=== PATIENT | male | born 1975 | race Caucasian/White ===

== ENCOUNTER 2016-09-15 17:41 | Emergency (ER) | payer SELFPAY ==
[~2016-09-15] VITALS: Ht 175.3 cm; Wt 63.0 kg
[2016-09-15 18:23] VITALS: BP 110/67; PULSE 94; RESP 20; TEMP 98.3; O2SAT 99
--- NOTE | 2016-09-15 18:48 | PD ---
HPI . 40 YOWM presents to the ed with c/o feelings of hopelessness & suicidal ideation after having financial troubles over the last week. He reports his symptoms worsened today after drinking a pint of vodka & smoking cocaine. He reports he has a plan to cut his wrist or shot himself with a gun. He reports past medical Hx of depression, Hep C & alcohol abuse. Patient reports seizures in the past with ETOH withdrawal. He reports is last drink was 5 hours ago. He is requesting help with his ETOH abuse & psychiatric problems. He denies any CP , SOB, N/V, or abdominal pain. Chief Complaint: Suicide Ideation/Attempt Time Seen by Provider: 18:45 Travel History International Travel<30 days: No Contact w/Intl Traveler<30days: No Traveled to known affect area: No History of Present Illness HPI 40 YOWM presents to the ed with c/o feelings of hopelessness & suicidal ideation after having financial troubles over the last week. He reports his symptoms worsened today after drinking a pint of vodka & smoking cocaine. He reports he has a plan to cut his wrist or shot himself with a gun. He reports past medical Hx of depression, Hep C & alcohol abuse. Patient reports seizures in the past with ETOH withdrawal. He reports is last drink was 5 hours ago. He is requesting help with his ETOH abuse & psychiatric problems. He denies any CP , SOB, N/V, or abdominal pain. PFSH Past Medical History Asthma: Yes Blood Disorders: No Anxiety: Yes Depression: Yes Heart Rhythm Problems: No Cancer: No Cardiovascular Problems: No High Cholesterol: No Chemotherapy: No Chest Pain: No Congestive Heart Failure: No COPD: No Cerebrovascular Accident: No Diabetes: No Diminished Hearing: No Endocrine: No Gastrointestinal Disorders: No Genitourinary: No Hepatitis: Yes (C) Hypertension: No Immune Disorder: No Implanted Vascular Access Dvce: Yes Musculoskeletal: No Neurologic: No Psychiatric: Yes Reproductive: No Respiratory: Yes Immunizations Current: Yes Myocardial Infarction: No Radiation Therapy: No Renal Failure: No Seizures: No Sleep Apnea: No Thyroid Disease: No Ulcer: No Past Surgical History Abdominal Surgery: Yes (HERNIA REPAIR) Body Medical Devices: L FOOT, SCREWS, PLATE, RALF Cardiac Surgery: No Ear Surgery: No Endocrine Surgery: No Eye Surgery: No Genitourinary Surgery: No Neurologic Surgery: No Oral Surgery: No Pacemaker: No Thoracic Surgery: No Tonsillectomy: Yes Other Surgery: Yes (undecented testicle,tonsillectomy,2 hernia. 20 screws on left foot. plate) Social History Alcohol Use: Yes (drinks 1 Liter Vodka daily) Tobacco Use: Yes Substance Use: Yes (Cocaine, pot) Allergies-Medications (Allergen,Severity, Reaction): Coded Allergies: Sulfa (Verified Allergy, Severe, Rash, 09/15/16) Per pt. Uncoded Allergies: Dust Mites (Allergy, Unknown, 07/06/15) Per pt. Reported Meds & Prescriptions Reported Meds & Active Scripts Active No Active Prescriptions or Reported Medications Review of Systems Except as stated in HPI: all other systems reviewed are Neg Psychiatric: Positive: Depression, Suicidal Ideations Physical Exam Narrative GENERAL: Alert & oriented , no acute distress, non-tremulous SKIN: Warm and dry. HEAD: Normocephalic. EYES: No scleral icterus. No injection or drainage. NECK: Supple, trachea midline. No JVD or lymphadenopathy. CARDIOVASCULAR: Regular rate and rhythm without murmurs, gallops, or rubs. RESPIRATORY: Breath sounds equal bilaterally. No accessory muscle use. GASTROINTESTINAL: Abdomen soft, non-tender, nondistended. MUSCULOSKELETAL: No cyanosis, or edema. BACK: Nontender without obvious deformity. No CVA tenderness. Psych: Cooperative, reporting suicidal ideation & depression Data Data Last Documented VS Vital Signs Date Time Temp Pulse Resp B/P Pulse Ox O2 Delivery O2 Flow Rate FiO2 09/16/16 02:57 107 18 113/79 96 09/15/16 22:35 98.1 Room Air Orders Complete Blood Count With Diff (09/15/16 18:08) Comprehensive Metabolic Panel (09/15/16 18:08) Psych Screen (09/15/16 18:08) Drug Screen, Random Urine (09/15/16 18:08) Alcohol (Ethanol) (09/15/16 18:38) Salicylates (Aspirin) (09/15/16 18:38) Tylenol (Acetaminophen) (09/15/16 18:38) Alcohol Withdrawal Asmt-Ciwa ONCE (09/15/16 18:53) Flumazenil Inj (Romazicon Inj) (09/15/16 19:00) Lorazepam (Ativan) (09/15/16 19:00) Lorazepam Inj (Ativan Inj) (09/15/16 19:00) Lorazepam (Ativan) (09/15/16 19:00) Lorazepam Inj (Ativan Inj) (09/15/16 19:00) Lorazepam Inj (Ativan Inj) (09/15/16 19:00) Lorazepam Inj (Ativan Inj) (09/15/16 19:00) Labs Laboratory Tests Test 09/15/16 09/15/16 18:10 19:15 White Blood Count 7.4 TH/MM3 Red Blood Count 5.16 MIL/MM3 Hemoglobin 16.1 GM/DL Hematocrit 47.8 % Mean Corpuscular Volume 92.7 FL Mean Corpuscular Hemoglobin 31.2 PG Mean Corpuscular Hemoglobin 33.7 % Concent Red Cell Distribution Width 13.5 % Platelet Count 230 TH/MM3 Mean Platelet Volume 8.4 FL Neutrophils (%) (Auto) 82.7 % Lymphocytes (%) (Auto) 10.5 % Monocytes (%) (Auto) 5.9 % Eosinophils (%) (Auto) 0.2 % Basophils (%) (Auto) 0.7 % Neutrophils # (Auto) 6.1 TH/MM3 Lymphocytes # (Auto) 0.8 TH/MM3 Monocytes # (Auto) 0.4 TH/MM3 Eosinophils # (Auto) 0.0 TH/MM3 Basophils # (Auto) 0.0 TH/MM3 CBC Comment DIFF FINAL Differential Comment Sodium Level 140 MEQ/L Potassium Level 3.8 MEQ/L Chloride Level 104 MEQ/L Carbon Dioxide Level 24.4 MEQ/L Anion Gap 12 MEQ/L Blood Urea Nitrogen 7 MG/DL Creatinine 0.97 MG/DL Estimat Glomerular Filtration 86 ML/MIN Rate Random Glucose 88 MG/DL Calcium Level 9.3 MG/DL Total Bilirubin 0.4 MG/DL Aspartate Amino Transf 86 U/L (AST/SGOT) Alanine Aminotransferase 101 U/L (ALT/SGPT) Alkaline Phosphatase 123 U/L Total Protein 9.5 GM/DL Albumin 4.5 GM/DL Urine Opiates Screen NEG Urine Barbiturates Screen NEG Urine Amphetamines Screen NEG Urine Benzodiazepines Screen NEG Urine Cocaine Screen POS Urine Cannabinoids Screen POS Salicylates Level 4.6 MG/DL Acetaminophen Level LESS THAN 2.0 MCG/ML Ethyl Alcohol Level 177 MG/DL MDM Medical Decision Making Medical Screen Exam Complete: Yes Emergency Medical Condition: Yes Medical Record Reviewed: Yes Differential Diagnosis suicidal ideation vs. depression vs polysubstance abuse Narrative Course 40 YOM presents with suicidal ideation & requesting ETOH detox. Patients last drink was 5 hours prior. He reports seizures in past with previous ETOH withdrawal. CIWAL protocol initiated, patient will be anglin acted & once medically cleared he will receive psych evaluation. Patients labs reviewed only pertinent findings were mild elevation of liver enzymes, not of true concern given the Hx of Hep C. ETOH level 177, UDS + cocaine & THC. Patient remains stable. He is medically cleared & awaiting psych evaluation. Diagnosis Primary Impression: Suicidal ideation Additional Impressions: Abuse, drug or alcohol Depression Qualified Code: F32.9 - Depression, unspecified depression type Scripts No Active Prescriptions or Reported Meds Danay Araujo September 15, 2016 18:48
[2016-09-15 18:59] LABS: AUTOMATED NEUTROPHIL # 6.1 TH/MM3 (1.8-7.7); BASOPHIL % 0.7 % (0.0-2.0); EOSINOPHIL % 0.2 % (0.0-4.0); HEMATOCRIT 47.8 % (39.0-51.0); HEMO FLAGS DIFF FINAL; LYMPH % 10.5 % (9.0-44.0); LYMPHOCYTE # 0.8 TH/MM3 (1.0-4.8); MEAN CELL VOLUME 92.7 FL (80.0-100.0); MEAN CORPUSCULAR HEMOGLOBIN 31.2 PG (27.0-34.0); MEAN CORPUSCULAR HGB CONC 33.7 % (32.0-36.0); MONO % 5.9 % (0.0-8.0); NEUT % 82.7 % (16.0-70.0); PLATELET COUNT 230 TH/MM3 (150-450); RED BLOOD COUNT 5.16 MIL/MM3 (4.50-5.90); RED CELL DISTRIBUTION WIDTH 13.5 % (11.6-17.2); WHITE BLOOD COUNT 7.4 TH/MM3 (4.0-11.0)
[2016-09-15] MEDS ORDERED: LORazepam 1 MG TAB PO PRN (19:00)
[2016-09-15] MEDS ORDERED: LORazepam 2 MG TAB PO PRN (19:00)
[2016-09-15] MEDS ORDERED: FLUMAZENIL 0.5 MG/5 ML VIAL IV PUSH PRN (19:00)
[2016-09-15] MEDS ORDERED: LORazepam 2 MG/ML VIAL IV PUSH PRN ×4 (19:00)
[2016-09-15 19:14] LABS: AMPHETAMINE, URINE NEG (NEG); BARBITURATES, URINE NEG (NEG); COCAINE, URINE POS (NEG)
[2016-09-15 19:27] LABS: ANION GAP 12 MEQ/L (5-15); AST (GOT) 86 U/L (15-37); BICARBONATE 24.4 MEQ/L (21.0-32.0); BLOOD UREA NITROGEN 7 MG/DL (7-18); CHLORIDE 104 MEQ/L (98-107); GLOMERULAR FILTRATION RATE 86 ML/MIN (>89); POTASSIUM 3.8 MEQ/L (3.5-5.1); SODIUM (NA) 140 MEQ/L (136-145)
[2016-09-15 19:30] LABS: ALKALINE PHOSPHATASE 123 U/L (45-117); ALT (GPT) 101 U/L (12-78); TOTAL BILIRUBIN ADULT 0.4 MG/DL (0.2-1.0)
[2016-09-15 20:25] LABS: ACETAMINOPHEN LESS THAN 2.0 MCG/ML (10.0-30.0)
[2016-09-15 22:35] VITALS: BP 94/60; PULSE 83; RESP 16; TEMP 98.1; O2SAT 95
[2016-09-16 02:57] VITALS: BP 113/79; PULSE 107; RESP 18; O2SAT 96
== END 2016-09-16 05:00 ==
LOC: NEPD 17:41 → NEPJ 09-16 05:00
DX: R45.851 Suicidal ideations (principal); F41.8 Other specified anxiety disorders; B19.20 Unspecified viral hepatitis C without hepatic coma; F12.90 Cannabis use, unspecified, uncomplicated; F14.90 Cocaine use, unspecified, uncomplicated
CPT/HCPCS: 80053; 80307; 85025; 96374; 99284; J2060

== ENCOUNTER 2016-10-01 22:25 | Emergency (ER) | payer SELFPAY ==
[~2016-10-01] VITALS: Ht 177.8 cm; Wt 61.0 kg
[2016-10-01 22:29] VITALS: BP 109/73; PULSE 100; RESP 16; TEMP 98.7; O2SAT 95
[2016-10-01] MEDS ORDERED: LIDOCAINE HCL 1% 20 ML VIAL INFIL ONE (22:45)
[2016-10-01] MEDS ORDERED: SODIUM CHLORIDE 0.9% FLUSH 10 ML FLUSH IV FLUSH PRN (22:45)
[2016-10-01] MEDS ORDERED: TETANUS/DIPHTHERIA TOXOID ADULT 0.5 ML VIAL IM ONE (22:45)
[2016-10-01] MEDS ORDERED: LIDOCAINE 1%/EPINEPHrine 1:100,000 SOLN 20 ML VIAL INFIL ONE (22:45)
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
--- NOTE | 2016-10-01 23:46 | PD ---
Physical Exam Date Seen by Provider: October 01, 2016 Time Seen by Provider: 23:45 Narrative For full history and physical examination please see previous provider's note. I was asked to repair laceration to forehead. Data Data Last Documented VS Vital Signs Date Time Temp Pulse Resp B/P Pulse Ox O2 Delivery O2 Flow Rate FiO2 10/01/16 22:29 98.7 100 16 109/[address] Brain W/O Iv Contrast(Rout) (10/01/16 22:37) Ct Cerv Spine W/O Contrast (10/01/16 22:37) Ct Facial Bones W/O Iv Cont (10/01/16 22:37) Complete Blood Count With Diff (10/01/16 22:37) Comprehensive Metabolic Panel (10/01/16 22:37) Prothrombin Time / Inr (Pt) (10/01/16 22:37) Act Partial Throm Time (Ptt) (10/01/16 22:37) Urinalysis - C+S If Indicated (10/01/16 22:37) Iv Access Insert/Monitor (10/01/16 22:37) Ecg Monitoring (10/01/16 22:37) Oximetry (10/01/16 22:37) Sodium Chloride 0.9% Flush (Ns Flush) (10/01/16 22:45) Alcohol (Ethanol) (10/01/16 22:37) Drug Screen, Random Urine (10/01/16 22:37) Tetanus/Diphtheria Tox Adult (Tetanus/Di (10/01/16 22:45) Lidocai-Epi 1%-1:100,000 Inj (Xylocaine- (10/01/16 22:45) Lidocaine 1% Inj (Xylocaine 1% Inj) (10/01/16 22:45) [facility] Medical Record Reviewed: Yes Supervised Visit with CAMMIE: Yes Interpretation(s) Last Impressions Maxillofacial CT 10/01/162236 Signed Impressions: Service Date/Time: Saturday, October 01, 2016 22:53 - CONCLUSION: No evidence of facial fracture Michael Bahena MD Head CT 10/01/162236 Signed Impressions: Service Date/Time: Saturday, October 01, 2016 22:53 - CONCLUSION: Normal examination. Michael Bahena MD Vital Signs Date Time Temp Pulse Resp B/P Pulse Ox O2 Delivery O2 Flow Rate FiO2 10/01/16 22:29 98.7 100 16 109/73 95 Procedures Procedure Narrative LACERATION LOCATION: Left forehead LENGTH: 2 cm NUMBER OF STITCHES/CHEN: 8 stitches REPAIR: The area of the laceration was prepped with Betadine and sterilely draped. The laceration was infiltrated with 1% lidocaine with epi. The wound was copiously irrigated and explored without evidence of foreign body, tendon injury or neurovascular injury. The wound was closed using 4-0 Prolene. This was a 1 layer repair. A sterile dressing was applied. The patient was advised to keep the dressing clean and dry. Patient tolerated the procedure well. Scripts No Active Prescriptions or Reported Meds Condition: Ev Moses October 01, 2016 23:46
[2016-10-02 00:12] VITALS: BP 110/70; PULSE 104; RESP 21; O2SAT 98
[2016-10-02 00:22] LABS: AUTOMATED NEUTROPHIL # 4.1 TH/MM3 (1.8-7.7); BASOPHIL # 0.1 TH/MM3 (0-0.2); EOSINOPHIL % 0.6 % (0.0-4.0); HEMATOCRIT 37.3 % (39.0-51.0); HEMO FLAGS DIFF FINAL; LYMPH % 23.1 % (9.0-44.0); LYMPHOCYTE # 1.4 TH/MM3 (1.0-4.8); MEAN CELL VOLUME 92.9 FL (80.0-100.0); MEAN CORPUSCULAR HEMOGLOBIN 31.5 PG (27.0-34.0); MEAN CORPUSCULAR HGB CONC 33.9 % (32.0-36.0); NEUT % 67.3 % (16.0-70.0); PLATELET COUNT 130 TH/MM3 (150-450); RED BLOOD COUNT 4.01 MIL/MM3 (4.50-5.90); RED CELL DISTRIBUTION WIDTH 12.8 % (11.6-17.2)
[2016-10-02 00:23] LABS: APTT (PATIENT) 31.3 SEC (24.3-30.1); PROTHROMBIN TIME - PATIENT 10.7 SEC (9.8-11.6)
[2016-10-02 00:32] LABS: BLOOD, URINE MOD (NEG); COMMENT (UR) CULT NOT INDICATED; CULTURE IF INDICATED CULT NOT INDICATED; GLUCOSE,URINE NEG (NEG); KETONE, URINE TRACE mg/dL (NEG); MUCUS URINE MOD /lpf (OCC); NITRITE,URINE NEG (NEG); PH, URINE 5.5 (5.0-8.5); URINE COLOR YELLOW (YELLW/STRAW)
[2016-10-02 00:36] LABS: AMPHETAMINE, URINE NEG (NEG); BARBITURATES, URINE NEG (NEG); COCAINE, URINE POS (NEG)
[2016-10-02 00:43] LABS: ALT (GPT) 113 U/L (12-78); ANION GAP 13 MEQ/L (5-15); AST (GOT) 132 U/L (15-37); BICARBONATE 27.3 MEQ/L (21.0-32.0); BLOOD UREA NITROGEN 14 MG/DL (7-18); CHLORIDE 106 MEQ/L (98-107); GLOMERULAR FILTRATION RATE 112 ML/MIN (>89); POTASSIUM 3.4 MEQ/L (3.5-5.1); SODIUM (NA) 146 MEQ/L (136-145)
[2016-10-02 00:48] LABS: ALKALINE PHOSPHATASE 83 U/L (45-117); TOTAL BILIRUBIN ADULT 0.3 MG/DL (0.2-1.0)
[2016-10-02] MEDS ORDERED: KETOROLAC TROMETHAMINE 30 MG/ML (IVP) VIAL IV PUSH ONE (01:15)
[2016-10-02] MEDS ORDERED: MORPHINE SULFATE 4 MG/ML INJ IV PUSH ONE (01:15)
[2016-10-02] MEDS ORDERED: ONDANSETRON HCL 4 MG/2 ML VIAL IV PUSH ONE (01:15)
[2016-10-02 01:20] VITALS: BP 102/79; PULSE 81; RESP 15; O2SAT 99
[2016-10-02 05:36] VITALS: BP 118/78
== END 2016-10-02 05:43 | disposition home or self-care (01) ==
LOC: NEPC 22:25 → NEPD 10-02 05:43
DX: S01.01XA Laceration without foreign body of scalp, initial encounter (principal); F10.10 Alcohol abuse, uncomplicated; R79.89 Other specified abnormal findings of blood chemistry; F17.200 Nicotine dependence, unspecified, uncomplicated; Z23 Encounter for immunization; Z87.09 Personal history of other diseases of the respiratory system; Z86.59 Personal history of other mental and behavioral disorders; Z86.19 Personal history of other infectious and parasitic diseases; Y00.XXXA Assault by blunt object, initial encounter
CPT/HCPCS: 12011; 70450; 70486; 72125; 80053; 80307; 81001; 85025; 85610; 85730; 90471; 90714; 96374; 96375; 99285; J1885; J2270; J2405

== ENCOUNTER 2016-10-03 03:35 | Emergency (ER) | payer SELFPAY ==
[~2016-10-03] VITALS: Ht 177.8 cm; Wt 65.0 kg
[2016-10-03 03:38] VITALS: BP 115/70; PULSE 64; RESP 18; TEMP 98.1; O2SAT 99
[2016-10-03 04:00] VITALS: O2SAT 100
[2016-10-03] MEDS ORDERED: THIAMINE INJ 100 MG in SODIUM CHLORIDE 0.9% INJ 100 ML IV ONE (04:00)
[2016-10-03] MEDS ORDERED: SODIUM CHLOR 0.9% 1000 ML INJ 1,000 ML IV ONE (04:00)
[2016-10-03 04:39] LABS: AMPHETAMINE, URINE NEG (NEG); AUTOMATED NEUTROPHIL # 2.4 TH/MM3 (1.8-7.7); BARBITURATES, URINE NEG (NEG); BASOPHIL % 0.9 % (0.0-2.0); COCAINE, URINE POS (NEG); EOSINOPHIL % 0.3 % (0.0-4.0); HEMO FLAGS DIFF FINAL; LYMPH % 29.6 % (9.0-44.0); LYMPHOCYTE # 1.2 TH/MM3 (1.0-4.8); MEAN CELL VOLUME 94.4 FL (80.0-100.0); MEAN CORPUSCULAR HEMOGLOBIN 31.7 PG (27.0-34.0); MEAN CORPUSCULAR HGB CONC 33.6 % (32.0-36.0); MONO % 8.2 % (0.0-8.0); PLATELET COUNT 108 TH/MM3 (150-450); RED CELL DISTRIBUTION WIDTH 12.5 % (11.6-17.2)
[2016-10-03 04:43] LABS: BLOOD, URINE SMALL (NEG); COMMENT (UR) CULT NOT INDICATED; CULTURE IF INDICATED CULT NOT INDICATED; GLUCOSE,URINE NEG (NEG); KETONE, URINE 10 mg/dL (NEG); MUCUS URINE FEW /lpf (OCC); NITRITE,URINE NEG (NEG); SQUAMOUS EPITHELIAL CELL URINE <1 /hpf (0-5); URINE COLOR YELLOW (YELLW/STRAW)
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
[2016-10-03 04:46] LABS: APTT (PATIENT) 30.8 SEC (24.3-30.1)
[2016-10-03 04:53] LABS: ALT (GPT) 87 U/L (12-78); ANION GAP 9 MEQ/L (5-15); AST (GOT) 96 U/L (15-37); BICARBONATE 26.1 MEQ/L (21.0-32.0); BLOOD UREA NITROGEN 8 MG/DL (7-18); CHLORIDE 107 MEQ/L (98-107); GLOMERULAR FILTRATION RATE 147 ML/MIN (>89); MAGNESIUM 1.6 MG/DL (1.5-2.5); POTASSIUM 3.7 MEQ/L (3.5-5.1); SODIUM (NA) 142 MEQ/L (136-145)
[2016-10-03 04:56] LABS: ACETAMINOPHEN LESS THAN 2.0 MCG/ML (10.0-30.0); ALKALINE PHOSPHATASE 88 U/L (45-117); TOTAL BILIRUBIN ADULT 0.3 MG/DL (0.2-1.0)
[2016-10-03 07:15] VITALS: BP 104/68; PULSE 87; RESP 15; O2SAT 96
--- NOTE | 2016-10-03 08:13 | PD ---
Physical Exam Narrative GENERAL: Well-nourished, well-developed patient. SKIN: Warm and dry. HEAD: Normocephalic and left forehead noted with sutures in place from laceration EYES: No injection or drainage. ENT: No nasal drainage noted. NECK: Supple, trachea midline. Nontender to palpation in midline CARDIOVASCULAR: Regular rate and rhythm RESPIRATORY: No increased effort. No accessory muscle use. NEUROLOGICAL: Awake and alert. Motor and sensory grossly within normal limits. Normal speech. Data Data Last Documented VS Vital Signs Date Time Temp Pulse Resp B/P Pulse Ox O2 Delivery O2 Flow Rate FiO2 10/03/16 07:15 87 15 104/68 96 Room Air 10/03/16 03:38 98.1 Orders Complete Blood Count With Diff (10/03/16 03:55) Comprehensive Metabolic Panel (10/03/16 03:55) Prothrombin Time / Inr (Pt) (10/03/16 03:55) Act Partial Throm Time (Ptt) (10/03/16 03:55) Urinalysis - C+S If Indicated (10/03/16 03:55) Magnesium (Mg) (10/03/16 03:55) Iv Access Insert/Monitor (10/03/16 03:55) Ecg Monitoring (10/03/16 03:55) Oximetry (10/03/16 03:55) Drug Screen, Random Urine (10/03/16 03:55) Alcohol (Ethanol) (10/03/16 03:55) Salicylates (Aspirin) (10/03/16 03:55) Tylenol (Acetaminophen) (10/03/16 03:55) Sodium Chlor 0.9% 1000 Ml Inj (Ns 1000 M (10/03/16 04:00) Thiamine Inj (Thiamine Inj) (10/03/16 04:00) Ct Brain W/O Iv Contrast(Rout) (10/03/16 ) Labs Laboratory Tests Test 10/03/16 04:11 White Blood Count 4.0 TH/MM3 Red Blood Count 3.70 MIL/MM3 Hemoglobin 11.7 GM/DL Hematocrit 35.0 % Mean Corpuscular Volume 94.4 FL Mean Corpuscular Hemoglobin 31.7 PG Mean Corpuscular Hemoglobin 33.6 % Concent Red Cell Distribution Width 12.5 % Platelet Count 108 TH/MM3 Mean Platelet Volume 8.8 FL Neutrophils (%) (Auto) 61.0 % Lymphocytes (%) (Auto) 29.6 % Monocytes (%) (Auto) 8.2 % Eosinophils (%) (Auto) 0.3 % Basophils (%) (Auto) 0.9 % Neutrophils # (Auto) 2.4 TH/MM3 Lymphocytes # (Auto) 1.2 TH/MM3 Monocytes # (Auto) 0.3 TH/MM3 Eosinophils # (Auto) 0.0 TH/MM3 Basophils # (Auto) 0.0 TH/MM3 CBC Comment DIFF FINAL Differential Comment Prothrombin Time 11.0 SEC Prothromb Time International 1.0 RATIO Ratio Activated Partial 30.8 SEC Thromboplast Time Urine Color YELLOW Urine Turbidity CLEAR Urine pH 5.0 Urine Specific [place] 1.017 Urine Protein NEG mg/dL Urine Glucose (UA) NEG mg/dL Urine Ketones 10 mg/dL Urine Occult Blood SMALL Urine Nitrite NEG Urine Bilirubin NEG Urine Urobilinogen LESS THAN 2.0 MG/DL Urine Leukocyte Esterase NEG Urine RBC 2 /hpf Urine WBC LESS THAN 1 /hpf Urine Squamous Epithelial <1 /hpf Cells Urine Mucus FEW /lpf Microscopic Urinalysis Comment CULT NOT INDICATED Sodium Level 142 MEQ/L Potassium Level 3.7 MEQ/L Chloride Level 107 MEQ/L Carbon Dioxide Level 26.1 MEQ/L Anion Gap 9 MEQ/L Blood Urea Nitrogen 8 MG/DL Creatinine 0.61 MG/DL Estimat Glomerular Filtration 147 ML/MIN Rate Random Glucose 71 MG/DL Calcium Level 8.1 MG/DL Magnesium Level 1.6 MG/DL Total Bilirubin 0.3 MG/DL Aspartate Amino Transf 96 U/L (AST/SGOT) Alanine Aminotransferase 87 U/L (ALT/SGPT) Alkaline Phosphatase 88 U/L Total Protein 6.8 GM/DL Albumin 3.4 GM/DL Salicylates Level 2.4 MG/DL Urine Opiates Screen NEG Acetaminophen Level LESS THAN 2.0 MCG/ML Urine Barbiturates Screen NEG Urine Amphetamines Screen NEG Urine Benzodiazepines Screen POS Urine Cocaine Screen POS Urine Cannabinoids Screen NEG Ethyl Alcohol Level 262 MG/DL [facility] Supervised Visit with CAMMIE: No Interpretation(s) ct head no acute Narrative Course Nursing staff states patient is noting headache. On review of records patient has had no imaging today and has had recent trauma. Patient is now sober and this is a new complaint. Will add on CT brain to rule out underlying injury and if this is negative he will be discharged home. ct negative, no new complaints, advised to stop drug use and limit alcohol Diagnosis Primary Impression: Polysubstance abuse Additional Impression: Alcohol intoxication Qualified Code: F10.929 - Alcohol intoxication, with unspecified complication Referrals: Primary Care Physician 2 days [facility] days Patient Instructions: General Instructions, Polysubstance Abuse (ED) Additional Instruction: return as needed, tylenol as needed Med/Other Pt SpecificInfo: No Change to Meds Scripts No Active Prescriptions or Reported Meds Disposition: 01 DISCHARGE HOME Condition: Stable Latasha Klein MD October 03, 2016 08:13
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
== END 2016-10-03 09:27 | disposition home or self-care (01) ==
LOC: NEPC 03:35
DX: F19.10 Other psychoactive substance abuse, uncomplicated (principal); F10.129 Alcohol abuse with intoxication, unspecified; F17.200 Nicotine dependence, unspecified, uncomplicated; R53.1 Weakness; B19.20 Unspecified viral hepatitis C without hepatic coma; Y90.8 Blood alcohol level of 240 mg/100 ml or more; S01.81XD Laceration without foreign body of other part of head, subsequent encounter; Y00.XXXD Assault by blunt object, subsequent encounter
CPT/HCPCS: 70450; 80053; 80307; 81001; 83735; 85025; 85610; 85730; 96361; 96365; 99284; J3411; J7030

== ENCOUNTER 2017-02-27 18:12 | Emergency (ER) | payer SELFPAY ==
[~2017-02-27] VITALS: Ht 177.8 cm; Wt 60.0 kg
[2017-02-27 18:14] VITALS: BP 131/63; PULSE 102; RESP 16; TEMP 99.7; O2SAT 96
[2017-02-27] MEDS ORDERED: CLIN150 PO (20:06)
[2017-02-27] MEDS ORDERED: CEPH-460 PO (20:06)
[2017-02-27] MEDS ORDERED: DICL75TA PO (20:06)
--- NOTE | 2017-02-27 20:13 | PD ---
HPI Chief Complaint: Skin Problem Time Seen by Provider: 19:58 Travel History International Travel<30 days: No Contact w/Intl Traveler<30days: No Traveled to known affect area: No History of Present Illness HPI 41-year-old white male presents to emergency Department with complaints of 2 sores on his buttock over the past few days after camping in the [facility] of the weekend. He denies any history of skin infections in the past. He does note that he came across an individual who alleges that he has had a history of staph infections. He had close quarters with this individual. He denies any fever or chills. Pain is moderate. Worse when he sits down on his bicycle seat. 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 He denies any pain in the anus. No scrotal pain. No nausea vomiting. No alleviating factors. Up-to- date with immunizations. PFSH Past Medical History Asthma: Yes Blood Disorders: No Anxiety: Yes Depression: Yes Heart Rhythm Problems: No Cancer: No Cardiovascular Problems: No High Cholesterol: No Chemotherapy: No Chest Pain: No Congestive Heart Failure: No COPD: No Cerebrovascular Accident: No Diabetes: Yes Patient Takes Glucophage: No Diminished Hearing: No Endocrine: No Gastrointestinal Disorders: No Genitourinary: No Hepatitis: Yes (C) Hypertension: No Immune Disorder: No Implanted Vascular Access Dvce: Yes Musculoskeletal: No Neurologic: No Psychiatric: Yes Reproductive: No Respiratory: Yes Immunizations Current: Yes Myocardial Infarction: No Radiation Therapy: No Renal Failure: No Seizures: No Sleep Apnea: No Thyroid Disease: No Ulcer: No Past Surgical History Abdominal Surgery: Yes (HERNIA REPAIR) Body Medical Devices: L FOOT, SCREWS, PLATE, RALF Cardiac Surgery: No Ear Surgery: No Endocrine Surgery: No Eye Surgery: No Genitourinary Surgery: No Neurologic Surgery: No Oral Surgery: No Pacemaker: No Thoracic Surgery: No Tonsillectomy: Yes Other Surgery: Yes (undecented testicle,tonsillectomy,2 hernia. 20 screws on left foot. plate) Social History Alcohol Use: Yes (DAILY) Tobacco Use: Yes (1PPD) Substance Use: Yes (COKE) Allergies-Medications (Allergen,Severity, Reaction): Coded Allergies: Sulfa (Sulfonamide Antibiotics) (Unverified Allergy, Severe, Rash, ) Per pt. Uncoded Allergies: Dust Mites (Allergy, Unknown, 07/06/15) Per pt. Reported Meds & Prescriptions Reported Meds & Active Scripts Active Diclofenac Sodium DR (Diclofenac Sodium) 75 Mg Tabdr 75 Mg PO BID Cleocin (Clindamycin HCl) 150 Mg Cap 300 Mg PO Q6H 10 Days Keflex (Cephalexin) 500 Mg Capsule 500 Mg PO QID Review of Systems General / Constitutional: No: Fever Eyes: No: Visual changes HENT: No: Headaches Cardiovascular: No: Chest Pain or Discomfort Respiratory: No: Shortness of Breath Gastrointestinal: No: Abdominal Pain Genitourinary: No: Dysuria Musculoskeletal: Positive: Pain Skin: Positive Rash, Positive Lumps Neurologic: No: Weakness Psychiatric: No: Depression Endocrine: No: Polydipsia Hematologic/Lymphatic: No: Easy Bruising Physical Exam Narrative GENERAL: This is a well-nourished, well-developed patient, in no apparent distress. Patient's examined with the nurse present SKIN: Patient has 2 areas erythema measuring approximately 4 x 4 centimeters each. They are indurated but not fluctuance or pointing. One lesion is on the right buttocks and the other lesion is on the left buttocks. There is no involvement of the anus, ecchymoses or lesions. Warm and dry. HEAD: Atraumatic. Normocephalic. EYES: PERRL, EOMI, no discharge or injection. No scleral icterus. EARS: Clear NOSE: Nasal turbinates appear normal. THROAT: Mucosa pink and moist. Airway patent. NECK: Trachea midline. supple, moves head freely. LUNGS: Clear to auscultation. CV: Regular in rhythm. ABDOMEN: Soft nontender. EXT: No clubbing cyanosis or edema. Data Data Last Documented VS Vital Signs Date Time Temp Pulse Resp B/P (MAP) Pulse Ox O2 Delivery O2 Flow Rate FiO2 02/27/17 18:14 99.7 102 16 131/63 (85) 96 Orders Orders Ibuprofen (Motrin) (02/27/17 20:15) Cephalexin (Keflex) (02/27/17 20:15) Clindamycin (Cleocin) (02/27/17 20:15) Ed Discharge Order (02/27/17 20:07) MDM Medical Decision Making Medical Screen Exam Complete: Yes Emergency Medical Condition: Yes Medical Record Reviewed: Yes Differential Diagnosis MDM: High Differential diagnoses: Abscess, folliculitis, cellulitis, lymphangitis, abrasion, contact dermatitis Narrative Course Patient is aware that these are developing abscess but have not localize as of yet. He may open to the skin and draining. If they do not get worse and may return. Patient given Keflex 1 g by mouth, clindamycin 300 mg by mouth, and Motrin 600 mg by mouth. This is buttocks abscesses Diagnosis Primary Impression: Abscess of multiple sites of buttock Patient Instructions: General Instructions Departure Forms: Tests/Procedures, Work Release Special Instructions: No work 3 days. Additional Instructions: Rest. Elevation. keep clean and dry. Warm compresses Daily wound care with soap, water and Neosporin. Diclofenac, Keflex and clindamycin Follow-up with a primary care doctor in 3-5 days Return to the ER for any problems. Med/Other Pt SpecificInfo: Prescription(s) given Scripts Diclofenac Sodium DR (Diclofenac Sodium DR) 75 Mg Tabdr 75 MG PO BID, #14 TAB 0 Refills Prov: Elyssa Whelan DO 02/27/17 Clindamycin (Cleocin) 150 Mg Cap 300 MG PO Q6H for Infection for 10 Days, #80 CAP 0 Refills Prov: Elyssa Whelan DO 02/27/17 Cephalexin (Keflex) 500 Mg Capsule 500 MG PO QID for Infection, #30 CAP 0 Refills Prov: Elyssa Whelan DO 02/27/17 Disposition: 01 DISCHARGE HOME Condition: Stable Esau Rodriguez Feb 27, 2017 20:13
[2017-02-27] MEDS ORDERED: IBUPROFEN 600 MG TAB PO ONE (20:15)
[2017-02-27] MEDS ORDERED: CEPHALEXIN MONOHYDRATE 500 MG CAP PO ONE (20:15)
[2017-02-27] MEDS ORDERED: CLINDAMYCIN 150 MG CAP PO ONE (20:15)
[2017-03-05] MEDS ORDERED: MUPI2OIN TOPICAL (19:24)
== END 2017-02-27 20:27 | disposition home or self-care (01) ==
LOC: NEPK 18:12
DX: L02.31 Cutaneous abscess of buttock (principal); J45.909 Unspecified asthma, uncomplicated; F41.9 Anxiety disorder, unspecified; F32.9 Major depressive disorder, single episode, unspecified; E11.9 Type 2 diabetes mellitus without complications; Z72.0 Tobacco use
CPT/HCPCS: 99284

== ENCOUNTER 2017-08-14 21:21 | Emergency (ER) | payer OTHER ==
[~2017-08-14] VITALS: Ht 175.3 cm; Wt 66.0 kg
[~2017-08-14 21:21] MED LIST: CLIN150 PO; MUPI2OIN TOPICAL
[2017-08-14 21:29] VITALS: BP 120/89; PULSE 107; RESP 12; TEMP 98.6; O2SAT 97
--- NOTE | 2017-08-14 21:46 | PD ---
HPI Chief Complaint: Suicide Ideation/Attempt Time Seen by Provider: 21:42 Travel History International Travel<30 days: No Contact w/Intl Traveler<30days: No Traveled to known affect area: No History of Present Illness HPI 41-year-old male that presents to the ED for evaluation of suicidal ideation. Patient was Brought here for Anthony act by police secondary to systolic deviation. Per patient he recently lost his job and he was recently in [employer]. Per patient he got out of [employer] and drank and went to work and then he was fired. Per patient this happened about 3 days ago. Patient has been using alcohol and cocaine in has been feeling very hopeless because of the whole situation. He states that he feels suicidal but he is hoping to get help. He denies any homicidal ideation. No chest pain or shortness of breath. No medical history other than pancreatitis secondary to alcohol. Denies any pain at this time however. Allergies to sulfa. No urinary or bowel movement issues. PFSH Past Medical History Asthma: Yes Blood Disorders: No Anxiety: Yes Depression: Yes Heart Rhythm Problems: No Cancer: No Cardiovascular Problems: No High Cholesterol: No Chemotherapy: No Chest Pain: No Congestive Heart Failure: No COPD: No Cerebrovascular Accident: No Diabetes: Yes Diminished Hearing: No Endocrine: No Gastrointestinal Disorders: No Genitourinary: No Hepatitis: Yes (C) Hypertension: No Immune Disorder: No Implanted Vascular Access Dvce: Yes Musculoskeletal: No Neurologic: No Psychiatric: Yes Reproductive: No Respiratory: Yes Immunizations Current: Yes Myocardial Infarction: No Radiation Therapy: No Renal Failure: No Seizures: No Sleep Apnea: No Thyroid Disease: No Ulcer: No Past Surgical History Abdominal Surgery: Yes (HERNIA REPAIR) Body Medical Devices: L FOOT, SCREWS, PLATE, RALF Cardiac Surgery: No Ear Surgery: No Endocrine Surgery: No Eye Surgery: No Genitourinary Surgery: No Neurologic Surgery: No Oral Surgery: No Pacemaker: No Thoracic Surgery: No Tonsillectomy: Yes Other Surgery: Yes (undecented testicle,tonsillectomy,2 hernia. 20 screws on left foot. plate) Social History Alcohol Use: Yes (DAILY) Tobacco Use: Yes (1PPD) Substance Use: Yes (COCAINE) Allergies-Medications (Allergen,Severity, Reaction): Coded Allergies: Sulfa (Sulfonamide Antibiotics) (Unverified Allergy, Severe, Rash, ) Per pt. Uncoded Allergies: Dust Mites (Allergy, Unknown, 07/06/15) Per pt. Reported Meds & Prescriptions Reported Meds & Active Scripts Active Mupirocin Topical (Mupirocin) 2 % Oint 1 Applic TOPICAL BID Cleocin (Clindamycin HCl) 150 Mg Cap 300 Mg PO Q6H 10 Days Review of Systems Except as stated in HPI: all other systems reviewed are Neg Physical Exam Narrative GENERAL: SKIN: Warm and dry. HEAD: Atraumatic. Normocephalic. EYES: Pupils equal and round. No scleral icterus. No injection or drainage. ENT: No nasal bleeding or discharge. Mucous membranes pink and moist. Tongue is midline. No uvula deviation. NECK: Trachea midline. No JVD. CARDIOVASCULAR: Regular rate and rhythm. No murmurs, S3, S4. RESPIRATORY: No accessory muscle use. Clear to auscultation. Breath sounds equal bilaterally. GASTROINTESTINAL: Abdomen soft, non-tender, nondistended. Hepatic and splenic margins not palpable. MUSCULOSKELETAL: Extremities without clubbing, cyanosis, or edema. No obvious deformities. Full range of motion of the upper and lower extremities bilaterally. 2+ pulses bilaterally. NEUROLOGICAL: Awake and alert. No obvious cranial nerve deficits. Motor grossly within normal limits. Five out of 5 muscle strength in the arms and legs. Normal speech. PSYCHIATRIC: Appropriate mood and affect; insight and judgment normal. Data Data Last Documented VS Vital Signs Date Time Temp Pulse Resp B/P (MAP) Pulse Ox O2 Delivery O2 Flow Rate FiO2 08/14/17 21:29 98.6 107 12 120/89 (99) 97 Orders Orders Complete Blood Count With Diff (08/14/17 21:42) Comprehensive Metabolic Panel (08/14/17 21:42) Thyroid Stimulating Hormone (08/14/17 21:42) Psych Screen (08/14/17 21:42) Drug Screen, Random Urine (08/14/17 21:42) Alcohol (Ethanol) (08/14/17 21:42) Salicylates (Aspirin) (08/14/17 21:42) Tylenol (Acetaminophen) (08/14/17 21:42) MDM Medical Decision Making Medical Screen Exam Complete: Yes Emergency Medical Condition: Yes Medical Record Reviewed: Yes Differential Diagnosis Depression versus suicidal ideation versus anxiety versus adjustment disorder versus mood disorder versus bipolar disorder versus schizophrenia versus paranoid disorder versus psychosis versus substance abuse versus alcohol abuse versus alcohol induced psychosis versus homicidality addition versus cutting versus personality disorder Narrative Course 41-year-old male that presents to the ED for evaluation of psych. Patient was properly examined and was found to have signs and symptoms consistent with psychiatric illness. No sign of acute medical distress. Labs were drawn. Patient was medically cleared. Okay to be seen by psych. Mental health screening was discussed with the patient. Diagnosis Primary Impression: Suicidal ideation Additional Impression: Polysubstance abuse Harsha Ying Aug 14, 2017 21:46
[2017-08-14 22:03] LABS: AUTOMATED NEUTROPHIL # 2.5 TH/MM3 (1.8-7.7); BASOPHIL # 0.1 TH/MM3 (0-0.2); BASOPHIL % 1.3 % (0.0-2.0); EOSINOPHIL % 0.1 % (0.0-4.0); HEMATOCRIT 41.7 % (39.0-51.0); HEMOGLOBIN 14.7 GM/DL (13.0-17.0); LYMPH % 29.1 % (9.0-44.0); LYMPHOCYTE # 1.3 TH/MM3 (1.0-4.8); MEAN CELL VOLUME 88.4 FL (80.0-100.0); MEAN CORPUSCULAR HGB CONC 35.1 % (32.0-36.0); MEAN PLATELET VOLUME 8.2 FL (7.0-11.0); MONO % 12.6 % (0.0-8.0); MONOCYTE # 0.6 TH/MM3 (0-0.9); NEUT % 56.9 % (16.0-70.0); PLATELET COUNT 181 TH/MM3 (150-450); RED BLOOD COUNT 4.72 MIL/MM3 (4.50-5.90); RED CELL DISTRIBUTION WIDTH 12.6 % (11.6-17.2); WHITE BLOOD COUNT 4.4 TH/MM3 (4.0-11.0)
[2017-08-14 22:31] LABS: AST (GOT) 174 U/L (15-37); BLOOD UREA NITROGEN 12 MG/DL (7-18); CALCIUM 8.5 MG/DL (8.5-10.1); CHLORIDE 106 MEQ/L (98-107); CREATININE 0.91 MG/DL (0.60-1.30); GLOMERULAR FILTRATION RATE 92 ML/MIN (>89); GLUCOSE,RANDOM 88 MG/DL (74-106); SODIUM (NA) 143 MEQ/L (136-145)
[2017-08-14 22:43] LABS: ALKALINE PHOSPHATASE 132 U/L (45-117); ALT (GPT) 132 U/L (12-78); TOTAL BILIRUBIN ADULT 0.3 MG/DL (0.2-1.0); TOTAL PROTEIN 8.9 GM/DL (6.4-8.2)
[2017-08-14 22:47] LABS: ACETAMINOPHEN LESS THAN 2.0 MCG/ML (10.0-30.0)
[2017-08-15 07:00] VITALS: BP 112/62; PULSE 93; RESP 20; TEMP 98.4; O2SAT 97
[2017-08-15 13:42] VITALS: BP 131/65; PULSE 80; RESP 16; O2SAT 99
--- NOTE | 2017-08-15 14:52 | PD.PSY.CON ---
Provisional Diagnosis Admission Date Date of consultation 08/15/2017 [place] I. 1. Polysubstance abuse 2. Malingering psychiatric symptoms to obtain detoxification services [place] II. Deferred History of Present Illness Service Psychiatry Consult Requested By Emergency department Reason for Consult Anthony act Primary Care Physician No Primary Care Physician HPI Mr. Norris is a 41-year-old male with a reported history of depression and substance use issues who presents under a Anthony act by law enforcement alleging that the patient walked up to the officer and said that he wanted to kill himself. Reviewing the electronic medical record, I note that the patient was seen by the psychiatric nurse practitioner in 2016. Patient's urine toxicology was positive for cocaine and his alcohol level was 271 on presentation here. Patient seen and examined. Chart reviewed. Case discussed with nursing staff. There has been no evidence of any suicidality or homicidality while the patient has been under observation in the [facility]. On my examination today, the patient admits that he was never suicidal saying "I have just been battling drug and alcohol problems for years." The patient reports that he was seeking detoxification services from substances. He believes that he is beginning to withdraw and complains of diarrhea and feeling sweaty. He denies any suicidal or homicidal ideation, intent or plan and contracts for safety. I can elicit no depressive or hypomanic/manic symptoms. He is notably future oriented. He does endorse some visual phenomena of "things moving around" but has no auditory hallucinations, no command auditory hallucinations. He does complain of some anxiety although this may be withdrawal related. I can elicit no delusional material. There is no evidence of any impairment in reality construction. Remainder of the psychiatric ROS is negative. Patient has no other physical complaints. He continues to desire detoxification from substances. Past psychiatric history: The patient reports a history of depression. He is not currently under the care of a psychiatrist. He denies a history of psychiatric admissions or suicide attempts. He denies a history of violent behavior. Family history: The patient denies a family history of serious mental illness. He does report that his brother completed suicide after he was rejected by the police [employer]. His father struggled with alcohol use issues. Chemical dependency history: The patient reports that he drinks 1/5 to a liter of liquor daily. He does have a history of DTs and seizures. Patient has also been using cocaine. Social history: Patient is homeless. He is high school educated. 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 He is single with no children. He denies access to guns or firearms. Review of Systems Except as stated in HPI: all other systems reviewed are Neg Past Family Social History Coded Allergies: Sulfa (Sulfonamide Antibiotics) (Unverified Allergy, Severe, Rash, ) Per pt. Uncoded Allergies: Dust Mites (Allergy, Unknown, 07/06/15) Per pt. Past Medical History Patient denies any past medical history Active Scripts Mupirocin Topical (Mupirocin Topical) 2 % Oint, 1 APPLIC TOPICAL BID for Mgmt Bacterial Infection, #22 GM 0 Refills Prov:Ev Fletcher 03/05/17 Clindamycin (Cleocin) 150 Mg Cap, 300 MG PO Q6H for Infection for 10 Days, #80 CAP 0 Refills Prov:Elyssa Whelan DO 02/27/17 Patient's Strengths (min. 2) Attending to basic needs. Verbally fluent. Physical Exam Physical examination completed by ED provider. On my examination today, the patient appears to be in no acute physical distress. I cannot appreciate any tremor, no diaphoresis or mydriasis noted. The patient does have subjective withdrawal symptoms as noted above. No other motor abnormalities noted. Labs and vitals reviewed: Vital Signs Vital Signs Date Time Temp Pulse Resp B/P (MAP) Pulse Ox O2 Delivery O2 Flow Rate FiO2 08/15/17 13:42 80 16 131/65 (87) 99 Room Air 08/15/17 07:00 98.4 I/O 08/15/17 08/15/17 08/16/17 08:00 16:00 00:00 Intake Total 1000 ml 200 ml Balance 1000 ml 200 ml Lab Results Test 08/14/17 21:45 White Blood Count 4.4 TH/MM3 Red Blood Count 4.72 MIL/MM3 Hemoglobin 14.7 GM/DL Hematocrit 41.7 % Mean Corpuscular Volume 88.4 FL Mean Corpuscular Hemoglobin 31.0 PG Mean Corpuscular Hemoglobin Concent 35.1 % Red Cell Distribution Width 12.6 % Platelet Count 181 TH/MM3 Mean Platelet Volume 8.2 FL Neutrophils (%) (Auto) 56.9 % Lymphocytes (%) (Auto) 29.1 % Monocytes (%) (Auto) 12.6 % Eosinophils (%) (Auto) 0.1 % Basophils (%) (Auto) 1.3 % Neutrophils # (Auto) 2.5 TH/MM3 Lymphocytes # (Auto) 1.3 TH/MM3 Monocytes # (Auto) 0.6 TH/MM3 Eosinophils # (Auto) 0.0 TH/MM3 Basophils # (Auto) 0.1 TH/MM3 CBC Comment DIFF FINAL Differential Comment Blood Urea Nitrogen 12 MG/DL Creatinine 0.91 MG/DL Random Glucose 88 MG/DL Total Protein 8.9 GM/DL Albumin 4.0 GM/DL Calcium Level 8.5 MG/DL Alkaline Phosphatase 132 U/L Aspartate Amino Transf (AST/SGOT) 174 U/L Alanine Aminotransferase (ALT/SGPT) 132 U/L Total Bilirubin 0.3 MG/DL Sodium Level 143 MEQ/L Potassium Level 3.4 MEQ/L Chloride Level 106 MEQ/L Carbon Dioxide Level 26.0 MEQ/L Anion Gap 11 MEQ/L Estimat Glomerular Filtration Rate 92 ML/MIN Thyroid Stimulating Hormone 3rd Gen 1.640 uIU/ML Salicylates Level 2.3 MG/DL Urine Opiates Screen NEG Acetaminophen Level LESS THAN 2.0 MCG/ML Urine Barbiturates Screen NEG Urine Amphetamines Screen NEG Urine Benzodiazepines Screen NEG Urine Cocaine Screen POS Urine Cannabinoids Screen NEG Ethyl Alcohol Level 271 MG/DL Mental Status Examination Appearance: Other (Fair grooming. Maintaining basic hygiene.) Consciousness: Alert Orientation: x4 Motor Activity: Other (Motor exam as above) Speech: Unremarkable Language: Adequate Fund of Knowledge: Adequate Attention and Concentration: Adequate Memory: Unremarkable Mood: Appropriate Affect: Appropriate Thought Process & Associations: Intact, Logical, Goal directed, Linear Thought Content: Appropriate Hallucination Type: None Delusion Type: None Suicidal Ideation: No Suicidal Plan: No Suicidal Intention: No Homicidal Ideation: No Homicidal Plan: No Homicidal Intention: No Mental Status Exam Remarks Insight and judgment are fair Assessment & Plan Problem List: (1) Polysubstance abuse ICD Codes: F19.10 - Other psychoactive substance abuse, uncomplicated Status: Acute Assessment & Plan 41-year-old male with psychiatric history as detailed above who presents under Anthony act. Patient admits that he malingered psychiatric symptoms to obtain detoxification services. He continues to desire detoxification from substances. He denies any suicidal or homicidal ideation. I can detect no unstable mental illness has defined under the Anthony act. There is no evidence of severe self-care deficit. The patient does have substance use issues. Synthesizing this information, I control systems specialist that the patient does not presently meet the Anthony act criteria. I have lifted the Anthony act. I have instructed the nurse to endeavor to transfer the patient for detoxification services. If we are unable to find a detox facility willing to accept the patient, I have recommended that he try to seek detox services directly from [facility]. I have supported the patient in his desire for sobriety from substances. I have counseled the patient regarding warning signs for need to return to the psychiatric emergency room as part of a general safety plan. I did add a CIWA scale with Ativan for the management of any withdrawal. Patient is otherwise psychiatrically clear for discharge from the ED. Thank you very much for this consultation. Request HC Surrog/Guard Advoc?: No Shelton Hansen MD Aug 15, 2017 14:52
[2017-08-15] MEDS ORDERED: FLUMAZENIL 0.5 MG/5 ML VIAL IV PUSH PRN (15:00)
[2017-08-15] MEDS ORDERED: LORazepam 2 MG/ML VIAL IV PUSH PRN ×4 (15:00)
[2017-08-15] MEDS ORDERED: LORazepam 1 MG TAB PO PRN (15:00)
[2017-08-15] MEDS ORDERED: LORazepam 2 MG TAB PO PRN (15:00)
[2017-08-15 16:05] VITALS: BP 115/61; PULSE 89; RESP 18; TEMP 98.3; O2SAT 98
--- NOTE | 2017-08-15 16:08 | PD ---
Physical Exam Time Seen by Provider: 16:[address] Balderas has evaluated the patient, lifted the Anthony act and cleared the patient for discharge. Data Data Last Documented VS Vital Signs Date Time Temp Pulse Resp B/P (MAP) Pulse Ox O2 Delivery O2 Flow Rate FiO2 08/15/17 16:05 98.3 89 18 115/61 (79) 98 Room Air Orders Orders Complete Blood Count With Diff (08/14/17 21:42) Comprehensive Metabolic Panel (08/14/17 21:42) Thyroid Stimulating Hormone (08/14/17 21:42) Psych Screen (08/14/17 21:42) Drug Screen, Random Urine (08/14/17 21:42) Alcohol (Ethanol) (08/14/17 21:42) Salicylates (Aspirin) (08/14/17 21:42) Tylenol (Acetaminophen) (08/14/17 21:42) Diet Regular Basic (08/15/17 Breakfast) Alcohol Withdrawal Asmt-Ciwa [id number] (08/15/17 14:52) Flumazenil Inj (Romazicon Inj) (08/15/17 15:00) Lorazepam (Ativan) (08/15/17 15:00) Lorazepam Inj (Ativan Inj) (08/15/17 15:00) Lorazepam (Ativan) (08/15/17 15:00) Lorazepam Inj (Ativan Inj) (08/15/17 15:00) Lorazepam Inj (Ativan Inj) (08/15/17 15:00) Lorazepam Inj (Ativan Inj) (08/15/17 15:00) Diet Regular Basic (08/15/17 Dinner) Labs Laboratory Tests Test 08/14/17 21:45 White Blood Count 4.4 TH/MM3 Red Blood Count 4.72 MIL/MM3 Hemoglobin 14.7 GM/DL Hematocrit 41.7 % Mean Corpuscular Volume 88.4 FL Mean Corpuscular Hemoglobin 31.0 PG Mean Corpuscular Hemoglobin Concent 35.1 % Red Cell Distribution Width 12.6 % Platelet Count 181 TH/MM3 Mean Platelet Volume 8.2 FL Neutrophils (%) (Auto) 56.9 % Lymphocytes (%) (Auto) 29.1 % Monocytes (%) (Auto) 12.6 % Eosinophils (%) (Auto) 0.1 % Basophils (%) (Auto) 1.3 % Neutrophils # (Auto) 2.5 TH/MM3 Lymphocytes # (Auto) 1.3 TH/MM3 Monocytes # (Auto) 0.6 TH/MM3 Eosinophils # (Auto) 0.0 TH/MM3 Basophils # (Auto) 0.1 TH/MM3 CBC Comment DIFF FINAL Differential Comment Blood Urea Nitrogen 12 MG/DL Creatinine 0.91 MG/DL Random Glucose 88 MG/DL Total Protein 8.9 GM/DL Albumin 4.0 GM/DL Calcium Level 8.5 MG/DL Alkaline Phosphatase 132 U/L Aspartate Amino Transf (AST/SGOT) 174 U/L Alanine Aminotransferase (ALT/SGPT) 132 U/L Total Bilirubin 0.3 MG/DL Sodium Level 143 MEQ/L Potassium Level 3.4 MEQ/L Chloride Level 106 MEQ/L Carbon Dioxide Level 26.0 MEQ/L Anion Gap 11 MEQ/L Estimat Glomerular Filtration Rate 92 ML/MIN Thyroid Stimulating Hormone 3rd Gen 1.640 uIU/ML Salicylates Level 2.3 MG/DL Urine Opiates Screen NEG Acetaminophen Level LESS THAN 2.0 MCG/ML Urine Barbiturates Screen NEG Urine Amphetamines Screen NEG Urine Benzodiazepines Screen NEG Urine Cocaine Screen POS Urine Cannabinoids Screen NEG Ethyl Alcohol Level 271 MG/DL MDM Supervised Visit with CAMMIE: No Narrative Course Dr. Balderas has evaluated the patient, lifted the Anthony act and cleared the patient for discharge. Patient contracts safety. Denies suicidal or homicidal ideations. Patient will be provided community resource packet to [facility] for follow-up. Has friends and family for support. Patient was medically cleared by alternate provider prior to psych screening. Patient has been evaluated by psychiatry and and is now cleared for discharge. Diagnosis Primary Impression: Suicidal ideation Additional Impression: Polysubstance abuse Referrals: [facility] (Out patient) [facility] Primary Care Physician Psychiatrist [facility] Patient Instructions: General Instructions, Polysubstance Abuse (ED), Suicide Prevention for Adults (ED) Additional Instruction: Contract safety to your self and others Follow-up with psychiatry Follow-up with primary care provider Follow-up with [facility] Return to the emergency department immediately with worsening of symptoms Med/Other Pt SpecificInfo: No Change to Meds, No Meds Exist/No RX given Disposition: 01 DISCHARGE HOME Condition: Stable Ghazal Haddad Aug 15, 2017 16:08
== END 2017-08-15 17:28 | disposition home or self-care (01) ==
LOC: NEDAMB 21:21 → NEPJ 08-15 17:28
DX: R45.851 Suicidal ideations (principal); F19.10 Other psychoactive substance abuse, uncomplicated; F41.9 Anxiety disorder, unspecified; F32.9 Major depressive disorder, single episode, unspecified; E11.9 Type 2 diabetes mellitus without complications; B19.20 Unspecified viral hepatitis C without hepatic coma; F17.200 Nicotine dependence, unspecified, uncomplicated; F14.90 Cocaine use, unspecified, uncomplicated; Z59.0 Homelessness
CPT/HCPCS: 80053; 80307; 84443; 85025; 99284